=== PATIENT | male | born 1960 | race Caucasian/White ===

== ENCOUNTER 2022-06-06 06:43 | Emergency (ER) | payer OTHER, SELFPAY ==
[2022-06-06 06:44] VITALS: BP 178/82; PULSE 73; RESP 16; TEMP 36.5; O2SAT 98; BMI 27.4
--- NOTE | 2022-06-06 06:54 | NURSING ---
no old ekgs
--- NOTE | 2022-06-06 07:01 | EKG12_ITS ---
Test Reason : CP Blood Pressure : / mmHG Vent. Rate : 068 BPM Atrial Rate : 068 BPM P-R Int : 168 ms QRS Dur : 084 ms QT Int : 386 ms P-R-T Axes : 043 011 044 degrees QTc Int : 410 ms Normal sinus rhythm Normal ECG Confirmed by NAIMA YEPEZ, DANIEL ([id number]), social media editor REYNALDO MONTEJO ([id number]) on 06/07/2022 10:06:49 AM Referred By: KIMBERLY Confirmed By:DANIEL MCNAMARA MD
--- NOTE | 2022-06-06 07:02 | EDS_ITS ---
HPI History of Present Illness Chief Complaint: Chest Pain Informant: patient Onset/Context/Timing Onset: Month(s) (1) Activity at onset: gradual, onset and activity on onset (varies; sometimes w/ exertion but during sleep, rest as well) Timing: Intermittent and Lasts (15-60 min on average) Quality: Positive for - (strong pnching) Location: Substernal (w/ occ radiation BUE) Current Severity: Mild Maximum Severity: Severe Worsened By: Nothing; Not Worsened By Breathing Relieved By: Nothing (has tried no treatments) Associated Symptoms: Positive for Diaphoresis (sometimes), Dyspnea (sometimes) and Palpitations (sometimes feels like a pause; no rapid or skipping palps); Negative for Nausea, Vomiting, Cough, Fever or Lightheadedness Narrative Narrative: Patient has been having episodes of chest discomfort for the last month. This is the first time he has had it looked at. This morning's episode occurred during rest at breakfast, it is better now without any specific treatment but has been there for about an hour. PFSH PFSH Medical History no medical history no medical history Home Medications pantoprazole 40 mg tablet,delayed release 40 mg PO DAILY #14 tabs 06/06/22 [Rx Last Taken Unknown] Allergy/AdvReac Type Severity Reaction Status Date / Time bee venom protein (honey bee) Allergy Swelling Verified 06/06/22 06:47 [bee sting] Social History Smoking Status: Never smoker ROS ROS ED Constitutional Constitutional ED: Denies chills or fever(s) Eyes Eyes: Denies change in vision or diplopia ENT ENT ED: Denies rhinorrhea or sore throat Cardiovascular Cardiovascular: Reports chest pain; Denies leg edema, orthopnea or racing heartbeat Respiratory/Chest Respiratory/Chest: Denies cough, dyspnea on exertion or orthopnea Gastrointestinal Gastrointestinal: Denies abdominal pain, diarrhea, nausea or vomiting Genitourinary Genitourinary ED: Denies dysuria or hematuria Musculoskeletal Musculoskeletal: Denies back pain or neck pain Integumentary Denies abscess or rash Neurologic Neurologic: Denies headache(s), paresthesias or weakness Psychiatric Psychiatric: Denies anxiety or suicidal thoughts EXAM Physical Exam Const Vital Signs: 06/06/22 06:44 06/06/22 07:26 Temperature 97.7 F L Temperature Source Temporal Pulse Rate 73 Respiratory Rate 16 Blood Pressure 178/82 H Blood Pressure Mean 114 Pulse Ox 98 98 Oxygen Delivery Method Room Air Room Air Positive well nourished and well developed General Appearance ED: well developed and NAD HEENT Reports moist mucous membranes normocephalic and atraumatic Eyes PERRL and EOMs intact bilaterally Neck full ROM and supple Chest Wall inspection of chest normal and palpation of chest normal Resp normal respiratory effort and clear to auscultation bilaterally Cardio regular rate, regular rhythm and no murmurs GI non-tender and non-distended Auscultation: normoactive bowel sounds Palpation: soft Back/Spine no CVA tenderness General Back: other FROM Extremity normal to inspection and no calf tenderness General Extremety ED: Negative for edema, pulses abnormal or tenderness General Extremity: Negative for edema or pulses abnormal Neuro oriented x3, CN's II-XII intact bilaterally and no sensory deficits noted Sensorium / Orientation: awake and alert Motor Exam: strength 5/5 throughout Skin no rashes or lesions noted and no wounds Heart Score History: Moderately Suspicious ECG: Normal Age: >45 - <65 years Risk Factors: No Risk Factors Troponin: </= Normal Limit Score: 2 MDM MDM MDM Narrative Medical decision making narrative: Patient's EKG is normal, cardiac work-up was obtained including troponin and a 1 view chest x-ray which on my interpretation shows nothing acute, radiology was in agreement. His high-sensitivity troponin came back at 5. He felt better and did not require any nitroglycerin which was offered, he was given aspirin and said that he had some recurrent discomfort shortly thereafter that then went away without specific treatment. We did a delta troponin 2 hours later, it returned at 5 for a delta of 0. This is reassuring with his heart score of only 2, he is stable for discharge home. I did offer admission for stress testing and inpatient observation, he declines and would prefer to go home. I recommend following up for stress test and/or reevaluation. In the meantime it is possible that this is esophagus-related, so I am putting him on a 2-week trial of a PPI to see if that helps for when he follows up. He is comfortable with all that and answered all questions at the bedside. He has a mild hypokalemia, this may have been due to acute respiratory alkalosis from hyperventilation as he was a little nervous when he got here, I do not think that needs to be acutely replaced and he is not have any symptoms of loss or renal issues. Lab Data Attestation: I reviewed the patient's lab results. Labs: Laboratory Results - last 24 hr 06/06/22 06/06/22 06/06/22 06:50 06:50 09:12 WBC 5.5 RBC 4.71 Hgb 14.7 Hct 41.6 MCV 88.3 MCH 31.2 MCHC 35.3 RDW Std Deviation 41.4 RDW Coeff of [place]ay[place] 12.9 Plt Count 205 MPV 10.1 Immature Gran % (Auto) 0.400 Neut % (Auto) 62.7 Lymph % (Auto) 29.5 [place] % (Auto) 5.3 Eos % (Auto) 1.5 Baso % (Auto) 0.6 Absolute Neuts (auto) 3.4 Absolute Lymphs (auto) 1.61 Nucleated RBC % 0 Sodium 143 Potassium 3.3 L Chloride 111 H Carbon Dioxide 25.0 Anion Gap 7 BUN 13 Creatinine 1.01 Estim Creat Clear Calc 69.31 Est GFR (MDRD) Af Amer 96 Est GFR (MDRD) Non-Af 80 BUN/Creatinine Ratio 12.9 Glucose 153 H Calcium 8.8 Troponin I High Sens 5 5 Radiography Diagnostic Testing: Clinical Impression(s) from Imaging Studies Chest X-Ray 06/06/22 07:10 IMPRESSION: No significant interval change. No radiographic evidence of acute cardiopulmonary disease. Electronically Signed: Jag Corona MD at 7:31 EST , Rhythm Strip Rhythm Strip: Sinus Rhythm Rate: 70 Ectopy: None EKG Initial EKG: Attestation: I personally reviewed and interpreted this EKG as follows: Interpretation: Sinus Rhythm and No Acute Injury Pattern Comments: normal EKG; no repol abn Prior: No Prior Discharge Plan Triage Chief Complaint: Chest Pain ED Provider: Rahul Dumas Dx/Rx/DC Orders Clinical Impression: Intermittent chest pain Instructions: ED Chest Pain, Uncertain Cause Prescriptions: New pantoprazole 40 mg tablet,delayed release (DR/EC) 40 mg PO DAILY Qty: 14 0RF Primary Care Provider: Jamie Moore Referrals: Jamie Moore, [Primary Care Provider] - As soon as possible (call for appt) Disposition Disposition: Home, Self Care
--- NOTE | 2022-06-06 07:10 | RAD_ITS ---
EXAM: XR CHEST, 1 VIEW CLINICAL INDICATION: chest pain TECHNIQUE: Frontal view of the chest. This report was created using [employer] report generation technology. COMPARISON: Previous chest radiographs of 09/24/2012. FINDINGS: LUNGS AND PLEURAL SPACES: Minimal linear parenchymal scarring the left lower lung laterally, unchanged. No acute pulmonary infiltrates. No consolidation or edema. No pneumothorax. No effusion. HEART: Unremarkable. Cardiac silhouette not enlarged. Normal pulmonary vasculature. MEDIASTINUM: Central airways and mediastinal contour are unremarkable. No mediastinal widening. BONES/JOINTS: No acute osseous abnormality. SOFT TISSUES: Unremarkable. RAD/Chest 1 View (Portable) IMPRESSION: No significant interval change. No radiographic evidence of acute cardiopulmonary disease. Electronically Signed: Jag Corona MD at 7:31 EST ,
[2022-06-06 07:12] LABS: Absolute Lymphocyte Count 1.61 X10^3/uL (0.83-4.51); Absolute Neutrophil Count 3.4 X10^3/uL (2.0-7.7); Basophil# 0.03 X10^3/uL; Basophil% 0.6 % (0-1); Eosinophil# 0.08 X10^3/uL; Eosinophils% 1.5 % (0-5); Hematocrit 41.6 % (40-54); Hemoglobin 14.7 g/dL (13.0-16.5); Lymphocyte # 1.61 X10^3/ul (0.83-4.51); Lymphocyte % 29.5 % (19-41); Mean Corp Hgb Conc 35.3 g/dL (32-36); Mean Corpuscular Hgb 31.2 pg (27.0-32.0); Mean Corpuscular Volume 88.3 fL (80-94); Mean Platelet Vol. 10.1 fl (6.2-12.0); Monocyte# 0.29 X10^3/uL; Monocyte% 5.3 % (0-10); NRBC Flagged by Analyzer 0 % (0-5); Neutrophil # 3.42 X10^3/uL (2.7-7.7); Neutrophil % 62.7 % (47-70); Platelet Count 205 K/mm3 (150-450); RBC Distribution Width CV 12.9 % (11.6-14.6); RBC Distribution Width SD 41.4 fl (35.1-43.9); Red Blood Count 4.71 M/mm3 (4.6-6.2); White Blood Count 5.5 K/mm3 (4.4-11.0)
[2022-06-06] MEDS: Aspirin 81 MG TAB.CHEW 324 MG PO (07:24)
[2022-06-06 07:26] VITALS: O2SAT 98
--- NOTE | 2022-06-06 07:27 | ED.RN ---
pt is denying any pain other than his needle pain in his arm. dr made aware and nitro not given
[2022-06-06 07:28] LABS: Anion Gap 7 (5-15); BUN 13 mg/dL (7-18); BUN/Creat Ratio 12.9 RATIO (10-20); Calcium,Total 8.8 mg/dL (8.5-10.1); Chloride 111 mmol/L (98-107); Creatinine, Serum 1.01 mg/dL (0.70-1.30); EST Glomerular Filtration Rate 80 mL/min (>60); Est Glom Filt Rate - Afr Amer 96 mL/min (>60); Estimated Creatinine Clearance 69.31 ml/min; Glucose 153 mg/dL (74-106); Potassium 3.3 mmol/L (3.5-5.1); Sodium Level 143 mmol/L (136-145); Troponin-I HS (w/2H Reflex) 5 pg/mL (3.0-78.0)
[2022-06-06 09:07] LABS: Reflex Troponin-HS? (from REC) Y
[2022-06-06 09:55] LABS: Troponin-I HS 5 pg/mL (3.0-78.0)
[2022-06-06 10:36] VITALS: BP 151/81; PULSE 79; RESP 16; O2SAT 98
== END 2022-06-06 10:39 | disposition home or self-care (01) ==
PROVIDERS: Emergency Provider Emergency Medicine; PCP Family Medicine; Visit Provider Emergency Medicine
DX: R07.9 Chest pain, unspecified (principal)
CPT/HCPCS: 71045; 80048; 84484; 85025; 93005; 99285; A4216